=== PATIENT | female | born 1980 | race Caucasian/White ===

== ENCOUNTER 2019-09-18 14:10 | Outpatient (CLI) | payer OTHER ==
[2019-09-18 14:46] LABS: #Basophils 0.1 thou/uL (0.0-0.2); #Eosinphils 0.3 thou/uL (0.0-0.7); #Lymphocytes 3.9 thou/uL (1.20-3.40); #Monocytes 0.6 thou/uL (0.11-0.59); %Basophils 1.1 % (0.0-1.0); %Eosinophils 2.7 % (0.0-10.0); %Lymphocytes 39.5 % (21.0-51.0); %Monocytes 6.2 % (0.0-10.0); %Neutrophils 50.6 % (42.0-75.0); Hemoglobin 14.5 g/dL (12.0-16.0); Mean Corpuscular HGB CONC 35.4 g/dL (32.0-36.0); Mean Corpuscular Hemoglobin 31.8 pg (27.0-31.0); Platelet Count 346 thou/uL (130-400); Red Blood Cell (RBC) Count 4.56 mill/uL (4.20-5.40); White Blood Cell (WBC) Count 9.9 thou/uL (4.8-10.8)
[2019-09-18 15:01] LABS: Bilirubin Negative (Negative); Blood, Urine Negative (Negative); Clarity Clear (Clear); Glucose, Urine (Dipstick) Normal (Negative); Leukocyte Negative Leu/uL (Negative); Nitrite Negative (Negative); Protein, Urine (Dipstick) Negative (Neg-Trace); RBC/HPF 0-3 HPF (0-3); Squamous Epithelial 0-3 HPF (0-3); Urobilinogen Normal mg/dL (Less than 2); WBC/HPF 0-3 HPF (0-3)
[2019-09-18 15:02] LABS: Bacteria/HPF 1+ HPF (None Seen)
[2019-09-18 15:09] LABS: Anion Gap 12 mmol/L (10-20); BUN (Urea Nitrogen) 16 mg/dL (7.0-18.7); Calc. Creatinine Clearance 0 mL/min (70-130); Calcium 9.7 mg/dL (7.8-10.44); Carbon Dioxide 22 mmol/L (22-29); Chloride 106 mmol/L (98-107); Estimated GFR-MDRD 65; Glucose 84 mg/dL (70-105); Potassium 4.4 mmol/L (3.5-5.1); Sodium 136 mmol/L (136-145)
== END 2019-09-18 14:11 | disposition home or self-care (01) ==
LOC: LABBT 14:10
PROVIDERS: ATTEND Orthopaedic Surgery Hand Surgery
DX: Z01.812 Encounter for preprocedural laboratory examination (principal); M77.12 Lateral epicondylitis, left elbow; M65.4 Radial styloid tenosynovitis [de Quervain]; M67.432 Ganglion, left wrist
CPT/HCPCS: 80048; 81001; 85025

== ENCOUNTER 2019-09-22 10:16 | Day surgery (SDC) | payer OTHER ==
[2019-09-18 14:07] VITALS: BMI 27.1
[~2019-09-22 10:16] MED LIST: Bupivacaine HCl 0.5%/Epinephrine 1:200,000/PF 30 ml Vial ONE; Dexamethasone 20 MG/5 ML VIAL ONE; Lidocaine 1% PF 5 ML VIAL ONE; Ondansetron PF 4 MG/2 ML Vial ONE; PROPOFOL 200 MG/20 ML VIAL ONE
[2019-09-22] MEDS ORDERED: Fentanyl 100 MCG/2 ML VIAL ONE ×2 (11:51→12:06)
[2019-09-22] MEDS ORDERED: Midazolam HCl 2 mg/2 ml Vial ONE (11:51)
[2019-09-22] MEDS ORDERED: EPINEPHrine 1 MG/ML AMP ONE (12:16)
[2019-09-22] MEDS ORDERED: Bacitracin Zinc Ointment 30 gm TUBE ONE (12:17)
[2019-09-22] MEDS ORDERED: Sodium Chloride 0.9% 0 ML ONE (12:17)
[2019-09-22] MEDS ORDERED: Betamet Acet/Betamet Na Ph 30 MG/5 ML VIAL ONE (13:55)
[2019-09-22] MEDS ORDERED: Ketorolac Tromethamine 30 MG/ML VIAL ONE (15:07)
[2019-09-22] MEDS ORDERED: Promethazine HCl 25 MG/ML VIAL ONE (15:14)
[2019-09-22] MEDS ORDERED: Meperidine HCl/PF 25 MG/ML VIAL ONE (15:36)
--- NOTE | 2019-09-23 08:34 | OP ---
DATE OF PROCEDURE: 09/22/2019 PREOPERATIVE DIAGNOSES: 1. Ganglion; left palmar wrist, recurrent. 2. Synovitis; diffuse, left wrist. 3. Chondral tear of lunate, 1 cm x 1 mm, grade 2-3. 4. Lateral epicondylitis, mild to moderate. 5. First dorsal compartment tenosynovitis. 6. Second dorsal compartment tenosynovitis. POSTOPERATIVE DIAGNOSES: 1. Ganglion; left palmar wrist, recurrent. 2. Synovitis; diffuse, left wrist. 3. Chondral tear of lunate, 1 cm x 1 mm, grade 2-3. 4. Lateral epicondylitis, mild to moderate. 5. First dorsal compartment tenosynovitis. 6. Second dorsal compartment tenosynovitis. All of the above were found to be postop diagnoses. PROCEDURES PERFORMED: 1. Left palmar wrist ganglion with arthrotomy and synovectomy of the joint. 2. Lateral epicondyle injection with 3 cc of Celestone under radiographic magnification. 3. Left wrist arthroscopic chondroplasty. 4. Left wrist arthroscopic synovectomy. 5. First dorsal compartment release/de Quervain release. 6. Second dorsal compartment tenosynovectomy (extensor compartment procedure). ESTIMATED BLOOD LOSS: 20 cc. COMPLICATIONS: None. TOURNIQUET TIME: 36 minutes. DESCRIPTION OF PROCEDURE: After successful general endotracheal anesthesia, the limb was prepped and draped. The patient then had C-arm brought into field, identified lateral epicondyle, injected with 3 cc of Celestone right on the condyle. No complications. We then placed the sterile arm into an arm nunez for wrist arthroscopy with a padded arm portion for traction and established traction. A standard 3, 4, 6U and 6R portals were established and a panoramic view of the wrist revealed so much synovitis, we had to perform arthroscopic debridement with a shaver in order to visualize the structures. Once we had done this, which was nearly a complete synovectomy, we found a chondral lesion off the lunate that was grade 2-3, approximately a wafer thick, but it had signs that it has been there for some time, could have caused pain and pressure palmarly. We resected this alternating between the 3-4 working and the 6R working. Now, we palpated the triangular fibrocartilage, it was intact in all aspects, no chondral lesion in the scaphoid portion of the wrist. The arthroscope was removed after the chondroplasty and complete synovectomy was accomplished. Now, the lateral epicondyle just been done, we turned our attention to the 1st dorsal compartment. Here, we made a zigzag incision slightly more dorsal and volar, identified the volar 50% of the complex where there was moderate thick tenosynovial edema worse at the dorsal and then entered at this interface to spare some for later repair. Once this was done, we saw that there was a separate compartment for the extensor pollicis brevis and there was moderate tenosynovitis over the extensor, so we performed extensor tenosynovectomy as well. The same procedure was done, extended slightly more proximal ulnarly to the interface/intersection of the extensor carpi ulnaris and brevis with the 1st dorsal compartment tendons. When this was done, there was marked tenosynovitis and tenosynovectomy was performed involving both sides of the . The patient then had the ganglion inspected open. Thus, an incision was made using the old incision after closing all the other incisions with 4-0 nylon and carried through skin and subcutaneous tissue until we evaluated the radial artery circulation, the confluence, it had to be released because the tip of the mass was seen. It was bilobed, radial artery was on top of one portion, and there was scar from previous surgery. We identified the mass after clipping small vessel branches in 360-degree fashion, lifted out on mass and had achieved the objective. We released the tourniquet. No otherwise lost and we then prepared for closure. We closed all the incisions with interrupted 4-0 nylon in a simple pattern without evidence of anesthetic or operative complication. The patient had a short-arm splint applied. Job ID: [id number]
== END 2019-09-22 17:20 | disposition home or self-care (01) ==
LOC: SDC 10:16
PROVIDERS: ATTEND Orthopaedic Surgery Hand Surgery
PROC: 0LN60ZZ Release Left Lower Arm and Wrist Tendon, Open Approach (ICD-10-PCS; principal; 2019-09-22)
PROC: 0LB60ZZ Excision of Left Lower Arm and Wrist Tendon, Open Approach (ICD-10-PCS; principal; 2019-09-22)
PROC: 0RBP4ZZ Excision of Left Wrist Joint, Percutaneous Endoscopic Approach (ICD-10-PCS; principal; 2019-09-22)
DX: M67.432 Ganglion, left wrist (principal); M65.4 Radial styloid tenosynovitis [de Quervain]; M77.12 Lateral epicondylitis, left elbow; M24.132 Other articular cartilage disorders, left wrist; Z87.891 Personal history of nicotine dependence
CPT/HCPCS: 88304; J0171; J0670; J0690; J0702; J1100; J1885; J2001; J2175; J2250; J2405; J2550; J2704; J3010; J3490